=== PATIENT | female | born 1940 | race Caucasian/White ===

== ENCOUNTER 2021-06-26 05:31 | Inpatient (IN) | payer MEDICARE ==
[2021-06-26] MEDS ORDERED: levETIRAcetam in NS 200 ML ONE (05:44)
[2021-06-26] MEDS ORDERED: Lorazepam 2 MG/ML VIAL ONE (05:45)
[2021-06-26 06:23] LABS: Bilirubin Neg (Negative); Blood, Urine 250 (Negative); Clarity Cloudy (Clear); Glucose, Urine (Dipstick) 50 mg/dL (Negative); Ketone, Urine 5 mg/dL (Negative); Leukocyte 500 (Negative); Nitrite Negative (Negative); Protein, Urine (Dipstick) 100 mg/dl (Neg-Trace); Specific Gravity, Urine 1.025 (1.002-1.036)
[2021-06-26 06:27] LABS: Hemoglobin 9.8 g/dL (12.0-15.5); Mean Corpuscular HGB CONC 27.7 g/dL (32.0-36.0); Mean Corpuscular Hemoglobin 28.2 pg (27.0-33.0); Mean Platelet Volume 10.6 fl (7.4-10.4); Platelet Count 236 10x3/uL (150-450); RBC Distribution Width 16.4 % (11.5-14.5); Red Blood Cell (RBC) Count 3.47 10x6/uL (3.90-5.03); White Blood Cell (WBC) Count 22.2 10x3/uL (3.5-10.5)
[2021-06-26 06:33] LABS: WBC/HPF Greater than 50 HPF (0-3)
[2021-06-26 06:34] LABS: Bacteria/HPF 3+ HPF (None Seen); Mucous/LPF 1+ LPF (<2+); Transitional Epithelial 0-3 HPF (None Seen)
[2021-06-26 06:52] LABS: ALT (SGPT) 104 U/L (8-55); AST (SGOT) 291 U/L (5-34); Albumin 3.2 g/dL (3.4-4.8); Alkaline Phosphatase 346 U/L (40-110); Anion Gap 26 mmol/L (10-20); BUN (Urea Nitrogen) 13 mg/dL (9.8-20.1); Calc. Creatinine Clearance 0 mL/min (70-130); Calcium 9.1 mg/dL (7.8-10.44); Carbon Dioxide 15 mmol/L (23-31); Chloride 98 mmol/L (98-107); Globulin 4.3 g/dL (2.4-3.5); Glucose 324 mg/dL (83-110); Potassium 3.3 mmol/L (3.5-5.1); Protein, Total 7.5 g/dL (5.8-8.1); Sodium 136 mmol/L (136-145)
[2021-06-26 07:14] LABS: CKMB 3.6 ng/mL (0-6.6)
[2021-06-26 07:29] LABS: Lymphocytes 11 % (21-51); Myelocyte 1 % (0-0); Reactive Lymphocytes 1 % (0-10)
[2021-06-26 07:32] LABS: Neutrophil 55 % (42-75)
[2021-06-26 07:33] LABS: Band 22 % (5-11)
[2021-06-26 07:34] LABS: Monocytes 8 % (0-10)
[2021-06-26 07:35] LABS: Anisocytosis SLIGHT = 6-15 cells (100X) (0-5/hpf); Hypochromia SLIGHT = 6-15 cells (100X) (0-5/hpf); Macrocytosis SLIGHT = 6-15 cells (100X) (0-5/hpf)
[2021-06-26 07:36] LABS: Platelet Clumps SLIGHT; Platelet Morphology Comment Appears Adequate
[2021-06-26 07:37] LABS: MDiff Complete? YES
[2021-06-26 07:42] LABS: CK (CPK) 102 U/L (29-168)
[2021-06-26] MEDS ORDERED: Cefepime 2 GM VIAL ONE (07:58)
[2021-06-26 08:56] LABS: Lactic Acid 8.9 mmol/L (0.5-2.2)
[2021-06-26] MEDS ORDERED: Acetaminophen 325 MG TAB PO PRN (09:27)
[2021-06-26] MEDS ORDERED: Ondansetron PF 4 MG/2 ML Vial IVP PRN (09:27)
[2021-06-26] MEDS ORDERED: Acetaminophen 650 MG Suppository PR PRN (09:27)
[2021-06-26] MEDS ORDERED: Ondansetron ODT 4 MG TAB PO PRN (09:27)
[2021-06-26] MEDS ORDERED: Vancomycin 1 GM in Premix Bag 1 BAG IVPB SCH (09:30)
[2021-06-26] MEDS ORDERED: Lorazepam 2 MG/ML VIAL SLOW IVP PRN (15:00)
[2021-06-26] MEDS ORDERED: Morphine 2 MG/ML VIAL SLOW IVP PRN (15:00)
[2021-06-26 15:57] VITALS: BMI 27.8
[2021-06-26 16:12] VITALS: BP 119/53; TEMP 98.4
[2021-06-26] MEDS ORDERED: Cefepime 2 GM in Sodium Chloride 0.9% 100 ML IVPB SCH (21:00)
== END 2021-06-26 18:40 | disposition hospice, inpatient (51) | DRG 64 ==
LOC: SUATTDRO 05:31 → CSHERS 05:31 → CSHIMCU 10:42 → CSHTELE 15:11
PROVIDERS: ADMIT Hospitalist; ATTEND Hospitalist
DX: I63.89 Other cerebral infarction (principal); A41.9 Sepsis, unspecified organism; R40.20 Unspecified coma; N39.0 Urinary tract infection, site not specified; C18.9 Malignant neoplasm of colon, unspecified; C78.7 Secondary malignant neoplasm of liver and intrahepatic bile duct; C78.00 Secondary malignant neoplasm of unspecified lung; C79.31 Secondary malignant neoplasm of brain; E11.9 Type 2 diabetes mellitus without complications; Z96.643 Presence of artificial hip joint, bilateral; I10 Essential (primary) hypertension; K21.9 Gastro-esophageal reflux disease without esophagitis; Z66 Do not resuscitate; I48.0 Paroxysmal atrial fibrillation; Z79.899 Other long term (current) drug therapy; Z85.038 Personal history of other malignant neoplasm of large intestine; Z90.710 Acquired absence of both cervix and uterus; Z90.49 Acquired absence of other specified parts of digestive tract; Z88.2 Allergy status to sulfonamides; Z93.3 Colostomy status; Z86.73 Personal history of transient ischemic attack (TIA), and cerebral infarction without residual deficits; Z87.891 Personal history of nicotine dependence; Z51.5 Encounter for palliative care
CPT/HCPCS: 36415; 36416; 70450; 71045; 80053; 81003; 81015; 82550; 82553; 83605; 83735; 84443; 84484; 85025; 87040; 93005; J0692; J1953; J2060; J3370

== ENCOUNTER 2021-06-26 18:43 | Inpatient (IN) | payer MEDICARE, OTHER ==
[2021-06-27] MEDS ORDERED: Morphine 10 MG/0.5 ML ORAL SYRINGE SL PRN (06:15)
[2021-06-27] MEDS ORDERED: Hyoscyamine Sulfate SL 0.125 mg Tablet SL PRN (06:15)
[2021-06-27] MEDS ORDERED: Ondansetron PF 4 MG/2 ML Vial IVP PRN (06:15)
[2021-06-27] MEDS ORDERED: Scopolamine 1.5 mg/72 hour Patch TOP PRN ×2 (06:15)
[2021-06-27] MEDS ORDERED: Haloperidol Lactate 5 MG/ML VIAL SLOW IVP PRN (06:15)
[2021-06-27] MEDS ORDERED: Promethazine HCl 25 MG SUPP PR PRN (06:15)
[2021-06-27] MEDS ORDERED: Lorazepam 2 MG/ML VIAL SLOW IVP PRN ×2 (06:15)
[2021-06-27] MEDS ORDERED: diphenhydrAMINE 50 MG/ML VIAL IVP PRN (06:15)
[2021-06-27] MEDS ORDERED: Acetaminophen 650 MG Suppository PR PRN (06:15)
[2021-06-27] MEDS ORDERED: chlorproMAZINE HCl 25 MG in Sodium Chloride 0.9% 50 ML IVPB PRN (06:15)
[2021-06-27] MEDS ORDERED: Morphine 4 MG/ML VIAL SLOW IVP PRN (06:19)
[2021-06-28 07:22] VITALS: BMI 27.9
[2021-06-30 09:06] VITALS: BP 117/56; TEMP 97
== END 2021-06-30 12:25 | DRG 951 ==
LOC: CSHTELE 18:43
PROVIDERS: ADMIT Family Medicine; ATTEND Family Medicine
DX: Z51.5 Encounter for palliative care (principal); A41.9 Sepsis, unspecified organism; I63.9 Cerebral infarction, unspecified; C18.9 Malignant neoplasm of colon, unspecified; C79.31 Secondary malignant neoplasm of brain; N39.0 Urinary tract infection, site not specified; R47.01 Aphasia; G81.91 Hemiplegia, unspecified affecting right dominant side; E11.9 Type 2 diabetes mellitus without complications; Z96.643 Presence of artificial hip joint, bilateral; R56.9 Unspecified convulsions; Z88.2 Allergy status to sulfonamides; Z79.84 Long term (current) use of oral hypoglycemic drugs; Z79.899 Other long term (current) drug therapy; Z90.49 Acquired absence of other specified parts of digestive tract; Z90.89 Acquired absence of other organs; Z90.710 Acquired absence of both cervix and uterus; Z87.891 Personal history of nicotine dependence